=== PATIENT | female | born 1960 | race African-American/Black ===

== ENCOUNTER 2016-08-03 17:07 | Inpatient (IN) | payer OTHER ==
[~2016-08-03] VITALS: Ht 177.8 cm; Wt 142.9 kg
--- NOTE | ~2016-08-03 | EEG ---
[facility] [place] [address] ELECTROENCEPHALOGRAM Name: SUSAN MCLAIN Room #: 451-P ADM IN M.R.#: [id number] Admission: 08/03/16 Attend Phys: Marilou Finley MD Discharge: Date of : 58 Report #: [id number] THIS REPORT FOR: //name// CC: Meghan Finley DATE OF SERVICE: 08/04/2016 This patient is being evaluated for the possibility of seizure. EEG was done by placing the electrodes by standard 10-20 system of electrode placement. Both referential and sequential montages were used for recording. Background activity in this patient's EEG is about 8 Hz and 15 microvolts. This patient goes to sleep that is associated with bilateral slowing and vertex sharp waves. Photic stimulation is unremarkable. Throughout the record, no active epileptiform activity was noticed. IMPRESSION: This patient's EEG does not demonstrate any clear-cut epileptiform activity. It might be mentioned that EEG can be normal in a patient with a seizure disorder. Therefore, clinical correlation is recommended. <ELECTRONICALLY SIGNED> By: Franky Villasenor MD 08/04/161929 39 22 Franky Villasenor MD /nt
--- NOTE | ~2016-08-03 | EKG ---
[address] [place] [address] ELECTROCARDIOGRAM REPORT Name: SUSAN MCLAIN Room #: 451-P ADM IN M.R.#: [id number] Admission: 08/03/16 Attend Phys: Marilou Finley MD Discharge: Date of : 58 Report #: [id number] THIS REPORT FOR: //name// [facility] ED Test Date: 2016-08-03 Test Time: 17:26:51 Pat Name: SUSAN MCLAIN Department: Room: [facility] Gender: F Body Specialist: BRANDIN : 1960 Requested By: Damir Palma Order Number: [id number] MD: Aaron Linn Measurements Intervals [place] Rate: 106 P: 51 FL: 153 QRS: 90 QRSD: 88 T: 33 QT: 349 QTc: 464 Interpretive Statements Sinus tachycardia Borderline right axis deviation No previous ECG available for comparison Electronically Signed On 08-04-2016 7:27:43 CDT by Aaron Linn [email or web address] <ELECTRONICALLY SIGNED> By: Aaron Linn MD, [facility] 08/04/16 0727 1726 1726 Aaron Linn MD, FACC /EPI
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
[~2016-08-03 17:07] MED LIST: ATIVAN0.5 MG PO; AZITHROMYCIN 2250 MG PO; CIPROFLOXACIN500 M3 OR; COLACE100 MG PO; COUMADIN 10MG T10 M1 PO; COUMADIN 2 MG TA2 M1; COUMADIN 3 MG TA3 MG; DEPAKOTE 250MG250 M1; DEPAKOTE ER500 MG PO; DILANTIN 100 M100 MG; DILANTIN100 MG; DILANTIN100 MG PO; FENTANYL PA25 MCG/HR TD; GABAPENTIN100 MG OR; GLIPIZIDE ER5 MG PO; GLIPIZIDE XL5 MG PO; IBUPROFEN 800800 M1 PO; JANTOVEN7.5 MG PO; JANUVIA100 MG PO; LANTUS100 UNIT/M SUBQ; LIDODERM 5%1 PATCH TD; METFORMIN HCL500 MG PO; METHOCARBAMOL750 MG OR; METHOCARBAMOL750 MG PO; NEURONTIN800 MG PO; NORCO 5-325 TA1 EACH PO; OXCARBAZEPINE300 M1 PO; OXYCODON-ACETA1 EAC1 OR; OXYCODONE HCL15 MG PO; PERCOCET 5-3251 EACH PO; PERCOCET 7.5-51 EACH PO; PRAVACHOL 20 MG20 M1 PO; TESSALON PERLE100 MG PO; TOBRADEX ST EYE5 ML OP; TOPAMAX 25 MG T25 M1 OR; TRILEPTAL 300300 MG PO; VIMPAT; XENADERM OINTME30 GM TP; ZANAFLEX4 MG PO
[2016-08-03 17:08] VITALS: BP 169/97
[2016-08-03 18:12] LABS: ABSOLUTE NEUTROPHILS 6.8 thou/uL (1.4-8.2); BASOPHILS 0.6 % (0.0-2.0); EOSINOPHILS 0.1 % (0.0-3.0); HEMOGLOBIN 13.2 gm/dL (12.0-15.0); LYMPHOCYTES 11.3 % (24.0-44.0); MCH 27.6 pg (26.0-34.0); MCHC 32.3 g/dL (28.0-37.0); MCV 85.5 fL (80.0-100.0); MONOCYTES 4.7 % (1.0-8.0); PLATELET COUNT 226 thou/uL (150-400); POLYS 83.3 % (36.0-66.0); RBC 4.79 mil/uL (4.20-5.00); RDW 14.3 % (10.5-14.5); WBC 8.2 thou/uL (4.0-11.0)
[2016-08-03 18:13] LABS: MANUAL DIFF NO
[2016-08-03 18:27] LABS: CREATININE 1.3 mg/dL (0.6-1.3); POTASSIUM 5.4 mmol/L (3.5-5.1)
[2016-08-03 18:28] LABS: INR 3.1; PROTIME 32.2 Seconds (9.3-11.4)
[2016-08-03 18:32] LABS: ALBUMIN 3.4 g/dL (3.4-5.0); TOTAL BILIRUBIN 0.3 mg/dL (<0.1-1.0)
[2016-08-03 19:28] VITALS: BP 169/97
[2016-08-03 19:47] VITALS: BP 143/92
[2016-08-03 20:10] VITALS: BP 125/86
[2016-08-04] VITALS (7 sets, daily range): BP systolic 103–143; BP diastolic 57–75
[2016-08-04 00:53] LABS: PROTIME 30.9 Seconds (9.3-11.4)
[2016-08-04 06:11] LABS: HEMATOCRIT 35.9 % (37.0-47.0); HEMOGLOBIN 11.7 gm/dL (12.0-15.0); MCH 27.5 pg (26.0-34.0); MCHC 32.5 g/dL (28.0-37.0); MCV 84.5 fL (80.0-100.0); RBC 4.25 mil/uL (4.20-5.00); RDW 14.3 % (10.5-14.5); WBC 11.3 thou/uL (4.0-11.0)
[2016-08-04 06:32] LABS: CALCIUM 9.2 mg/dL (8.5-10.1); CREATININE 1.1 mg/dL (0.6-1.3); POTASSIUM 4.5 mmol/L (3.5-5.1)
[2016-08-04 06:36] LABS: URINE BILIRUBIN NEGATIVE (Negative); URINE BLOOD NEGATIVE (Negative); URINE COLOR YELLOW; URINE GLUCOSE-RANDOM* NEGATIVE (Negative); URINE KETONES NEGATIVE (Negative); URINE LEUKOCYTES-REFLEX NEGATIVE (Negative); URINE PROTEIN (DIPSTICK) NEGATIVE (Negative); URINE UROBILINOGEN 0.2 E.U./dl (0.2-1.0)
[2016-08-05 02:00] LABS: INR 2.8; PROTIME 29.3 Seconds (9.3-11.4)
[2016-08-05 03:34] VITALS: BP 104/60
[2016-08-05 08:18] VITALS: BP 128/68
[2016-08-05 11:25] VITALS: BP 128/68
[2016-08-05 11:37] VITALS: BP 128/68
[2016-08-05] MEDS ORDERED: VIMPAT100 MG PO (12:52)
[2016-08-05 13:04] VITALS: BP 128/68
== END 2016-08-05 14:34 | disposition home health service (06) | DRG 101 ==
LOC: ER 17:07 → EROBS 18:31 → 4W 18:31
PROVIDERS: Emergency Medicine; Family Medicine
DX: G40.909 Epilepsy, unspecified, not intractable, without status epilepticus (principal); Z68.42 Body mass index [BMI] 45.0-49.9, adult; E66.01 Morbid (severe) obesity due to excess calories; M06.9 Rheumatoid arthritis, unspecified; G89.29 Other chronic pain; M54.9 Dorsalgia, unspecified; M19.90 Unspecified osteoarthritis, unspecified site; G93.0 Cerebral cysts; E11.9 Type 2 diabetes mellitus without complications; Z79.01 Long term (current) use of anticoagulants; Z97.0 Presence of artificial eye; Z90.49 Acquired absence of other specified parts of digestive tract; Z88.8 Allergy status to other drugs, medicaments and biological substances; Z79.899 Other long term (current) drug therapy; Z86.718 Personal history of other venous thrombosis and embolism; Z86.711 Personal history of pulmonary embolism
CPT/HCPCS: 10045